=== PATIENT | male | born 1995 | race African-American/Black ===

== ENCOUNTER 2025-08-20 13:55 | Emergency (ER) | payer BC, SELFPAY ==
[2025-08-20] MEDS ORDERED: Dexamethasone 10 MG/ML VIAL ONE (16:14)
== END 2025-08-20 16:26 | disposition home or self-care (01) ==
LOC: ERS 13:55
DX: J02.9 Acute pharyngitis, unspecified (principal)
CPT/HCPCS: 87081; 87428; 87430; 99283; J1100